=== PATIENT | female | born 1945 | race Caucasian/White ===

== ENCOUNTER 2022-02-03 22:11 | Emergency (ER) | payer MEDICARE, SELFPAY ==
--- NOTE | 2022-02-03 22:22 | ED.SYNCOPE ---
HPI - Syncope General Chief Complaint: Syncope Stated Complaint: syncope Time Seen by Provider: 02/03/22 22:19 History of Present Illness HPI narrative: Patient is a 76-year-old female presents after a syncopal episode. She states she takes no medicine is. She was scrap booking with her [id number] she did have a couple glasses of red wine she said the not atypical for her of she drinks on the weekends. She stood up she had sweats and chills felt nauseous and abruptly passed out. There was a brief loss of consciousness. It is obvious that she did hit her nose where her glasses are. She denies any neck pain no visual changes no numbness tingling or weakness. She has never passed out before. He was feeling in her normal state of health earlier today. EMS reports normal orthostatics. Related Data Allergies Allergy/AdvReac Type Severity Reaction Status Date / Time Penicillins Allergy Verified 02/03/22 22:27 Review of Systems Review of Systems Narrative: GENERAL: Denies chills, fatigue, malaise, fever, sweats, travel HEENT: Denies sinus pain, ear pain, sore throat, difficulty swallowing, neck pain RESPIRATORY: Denies dyspnea, cough, wheezing, hemoptysis, sputum. CARDIOVASCULAR: Denies chest pain, palpitations, orthopnea, edema GASTROINTESTINAL: Denies nausea, vomiting, abdominal pain, diarrhea, constipation, melena. : Denies dysuria, frequency, incontinence, hematuria, urinary retention, flank pain. MUSCULOSKELETAL: Denies weakness, joint pain, or bony pain SKIN: No rash, no erythema, no pruritus NEUROLOGIC: See HPI PSYCHIATRIC: No concerning psychosocial issues. 12 point review of systems is negative except for those stated above and HPI Patient History Social History Smoking Status: Never smoker Exam Initial Vital Signs Initial Vital Signs: Vital Signs Temperature 98.1 F 02/03/22 22:27 Pulse Rate 87 02/03/22 22:27 Respiratory Rate 15 02/03/22 22:27 Blood Pressure 130/68 02/03/22 22:27 Pulse Oximetry 99 02/03/22 22:27 GENERAL: Alert well-appearing 76-year-old female HEENT: Head atraumatic,EOMI, pupils reactive, face symmetric, moist mucous membranes CARDIOVASCULAR: Regular rate and rhythm without murmurs, rubs or gallops. RESPIRATORY: Breath sounds equal bilaterally, no wheezes rales or rhonchi. ABDOMEN: Soft, nontender. Normoactive bowel sounds all 4 quadrants. No guarding or rebound. EXTREMITIES: Normal range of motion, no clubbing or edema. Neurovascularly intact NEUROLOGICAL: Alert and oriented x4.Normal gait and speech. Cranial nerves II through XII grossly intact. Good [id number], good [id number]-[id number], strength equal bilaterally, no dysarthria or aphasia, sensation in tact to soft touch bilaterally, no visual changes, no facial droop SKIN: Nose has a small abrasion no laceration no bleeding Scores NIH Stroke Scale Level of Conciousness: Alert, keenly responsive Ask month/age: Answers both questions correctly. Open/close eyes, close hand: Performs both tasks correctly Best gaze horizontal: Normal Visual espinal: No visual loss Facial palsy: Normal symetrical movement Left arm drift: No drift for full 10 sec Right arm drift: No drift for full 10 sec Left leg drift: No drift for full 5 sec Right leg drift: No drift for full 5 sec Limb ataxia: Absent Sensory on face/arms/legs: Normal, no sensory loss Best language: No aphasia, normal Dysarthria: Normal Extinction or inattention: No abnormality Total NIH Stroke scale score: 0 Course Orders Ordered: ED Orders 02/03/22 22:20 Complete Blood Count AUTO DIFF Stat Comprehensive Metabolic Panel Stat ETOH [Ethanol (ETOH)] Stat Lipase Stat Magnesium Stat Troponin & CK Cardiac Panel Stat 02/03/22 22:31 XR chest 1V Stat EKG-12 Lead Stat 02/03/22 22:44 CT head/brain wo con Stat Discontinued Medications Sodium Chloride (Normal Saline 0.9%) 1,000 mls @ 1,000 mls/hr IV BOLUS ONE Stop: 02/03/22 23:43 Last Infusion: 02/04/22 00:53 Dose: 0 mls/hr Documented by: Admin: 02/03/22 22:52 Dose: 1,000 mls/hr Documented by: NAKITA Ondansetron HCl (Ondansetron 4 Mg/2 Ml Inj) 4 mg IV NOW ONE Stop: 02/03/22 22:33 Last Admin: 02/03/22 22:39 Dose: 4 mg Documented by: NAKITA Vital Signs Vital signs: Vital Signs - 8 hr 02/03/22 22:27 02/03/22 22:36 02/03/22 23:00 Temperature 98.1 F Pulse Rate 87 85 85 Respiratory Rate 15 Blood Pressure 130/68 Pulse Oximetry 99 98 98 02/03/22 23:12 02/03/22 23:30 02/04/22 00:00 Temperature Pulse Rate 82 82 91 H Respiratory Rate Blood Pressure 135/65 127/60 132/61 Pulse Oximetry 100 96 98 02/04/22 00:09 02/04/22 00:30 Temperature Pulse Rate 87 100 H Respiratory Rate 6 L 25 H Blood Pressure 126/76 130/62 Pulse Oximetry 98 97 MDM - Syncope Lab Data Result diagrams: 02/03/22 22:20 02/03/22 22:20 Labs: Lab Results 02/03/22 02/03/22 02/03/22 Range/Units 22:20 22:20 22:20 WBC 8.8 (4.5-11.0) X10^3/uL RBC 4.11 (4.0-5.2) X10^6/uL Hgb 13.1 (12.0-16.0) g/dL Hct 38.1 (36-46) % MCV 92.6 (80-100) fL MCH 31.8 (26-34) PG MCHC 34.3 (30-36) % RDW 12.4 (11.6-14.8) % Plt Count 224 (150-400) X10^3/uL Neut % (Auto) 70.0 (50-75) % Lymph % (Auto) 17.4 L (25-40) % [place] % (Auto) 11.4 (3-14) % Eos % (Auto) 0.7 L (2-4) % Baso % (Auto) 0.5 (0-2) % Neut # (Auto) 6100 (4265-2408) /uL Lymph # (Auto) 1500 (7409-6376) /uL [place] # (Auto) 1000 H (0-900) /uL Eos # (Auto) 100 (0-450) /uL Baso # (Auto) 0 (0-100) /uL Sodium 131 L (137-145) mmol/L Potassium 3.3 L (3.4-5.1) mmol/L Chloride 96 L (98-107) mmol/L Carbon Dioxide 23 (22-32) mmol/L BUN 14 (7-17) mg/dL Creatinine 0.70 (0.52-1.04) mg/dL Estimated GFR > 60.0 (>60) mL/min BUN/Creatinine Ratio 20.0 (6-22) Glucose 120 H (80-110) mg/dL Calcium 9.3 (8.4-10.2) mg/dL Magnesium 2.0 (1.6-2.3) mg/dL Total Bilirubin 0.5 (0.2-1.3) mg/dL AST 33 (14-36) IU/L ALT 23 (<35) IU/L Alkaline Phosphatase 100 (38-126) U/L Total Creatine Kinase 71 (30-135) U/L CK-MB (CK-2) TNP CK-MB (CK-2) Rel Index TNP Troponin I < 0.012 (0.01-0.034) ng/mL Total Protein 8.0 (6.3-8.2) g/dL Albumin 4.5 (3.5-5.0) g/dL Globulin 3.5 (1.7-4.1) g/dL Albumin/Globulin Ratio 1.3 (1.0-2.8) Lipase 65 (23-300) U/L Ethyl Alcohol 40 H ( - 10) mg/dL Imaging Data CT scan - head: Radiologist's Impression: PROCEDURE:? CT HEAD/BRAIN WO CON ? INDICATIONS:? syncope ? TECHNIQUE:? Noncontrast 4.5 mm thick angled axial sections acquired from the foramen magnum to the vertex, with coronal and sagittal reformats.? For radiation dose reduction, the following was used:? automated exposure control, adjustment of mA and/or kV according to patient size.? ? COMPARISON:? None. ? FINDINGS:? Image quality:? Excellent.? ? CSF spaces:? Basal cisterns are patent.? No extra-axial fluid collections.? The ventricles are symmetric in size and shape.? ? Brain:? No intracranial bleeds or masses.? There is cerebral volume loss for age, with resultant ventricular and sulcal prominence.? There are periventricular and deep white matter chronic small vessel ischemic changes.? There is intracranial internal carotid artery atherosclerosis.? ? Skull and face:? Calvarium and visualized facial bones appear intact, without suspicious lesions.? ? Sinuses:? Visualized sinuses and mastoids are clear.? ? IMPRESSION:? Normal for age.? No trauma found. ? ? Dictated by: Jah Tenorio M.D. on 02/03/2022 at 23:20 ? ? Approved by: Jah Tenorio M.D. on 02/03/2022 at 23:20 ? Chest x-ray: Radiologist's Impression: PROCEDURE:? XR CHEST 1V ? INDICATIONS:? chest pain ? TECHNIQUE:? One view of the chest was acquired.? ? COMPARISON:? None. ? FINDINGS:? ? Surgical changes and devices:? None.? ? Lungs and pleura:? Lungs are clear.? No pleural effusions or pneumothorax.? ? Mediastinum:? Mediastinal contours appear normal.? Heart size is normal.? ? Bones and chest wall:? No suspicious bony lesions.? Overlying soft tissues appear unremarkable.? ? IMPRESSION:? Normal for age, source of current chest pain symptoms is not seen. ? ? Dictated by: Jah Tenorio M.D. on 02/03/2022 at 23:19 ? ECG Data Interpretation: 84 MD interval 192 QRS [address] changes PVC noted MDM Narrative Medical decision making narrative: Patient had a syncopal episode after drinking alcohol. No focal deficits head CT is negative. She ambulated to the restroom without any difficulty. She does have some minor electrolyte abnormalities sodium of 131 in potassium 3.3, these are unlikely causing her syncopal episode today. Discharge Plan Departure Patient Disposition: Home Clinical Impression: Vasovagal syncope Instructions: DI for Syncope in Adults (Fainting) Activity Restrictions/Additional Instructions: *You have been diagnosed with vasovagal episode *What to do: At this time you passed out. Unclear what it is from possibly from standing up too fast or out JOE. Workup today is negative. If it should happen again return to emergency department. Recommend going home and resting. Make sure you drink enough fluids throughout the day *Continue to take medications as directed *Follow up with your primary care provider in 2-3 days or call [phone] *Return to ER if you should have recurrent episode of passing out, chest pain palpitations, or any new, worsening or concerning symptoms
[2022-02-03 22:27] VITALS: BP 130/68; PULSE 87; RESP 15; TEMP 36.7; O2SAT 99; BMI 25.3
--- NOTE | 2022-02-03 22:31 | DI.RAD.S_ITS ---
PROCEDURE: XR CHEST 1V INDICATIONS: chest pain TECHNIQUE: One view of the chest was acquired. COMPARISON: None. FINDINGS: Surgical changes and devices: None. Lungs and pleura: Lungs are clear. No pleural effusions or pneumothorax. Mediastinum: Mediastinal contours appear normal. Heart size is normal. Bones and chest wall: No suspicious bony lesions. Overlying soft tissues appear unremarkable. IMPRESSION: Normal for age, source of current chest pain symptoms is not seen. Dictated by: Jha Tenorio M.D. on 02/03/2022 at 23:19 Approved by: Jah Tenorio M.D. on 02/03/2022 at 23:19
[2022-02-03 22:36] VITALS: PULSE 85; O2SAT 98
[2022-02-03] MEDS: ONDANSETRON 4 MG/2 ML INJ IV (22:39)
[2022-02-03 22:42] LABS: Add Manual Diff / Slide Review NO; Basophils Absolute Auto 0 /uL (0-100); Basophils Percent Auto 0.5 % (0-2); Eosinophils Absolute Auto 100 /uL (0-450); Eosinophils Percent Auto 0.7 % (2-4); Hematocrit 38.1 % (36-46); Hemoglobin 13.1 g/dL (12.0-16.0); Lymphocytes Absolute Auto 1500 /uL (1100-4500); Lymphocytes Percent Auto 17.4 % (25-40); Mean Corpuscular HGB Conc 34.3 % (30-36); Mean Corpuscular Hemoglobin 31.8 PG (26-34); Mean Corpuscular Volume 92.6 fL (80-100); Monocytes Absolute Auto 1000 /uL (0-900); Monocytes Percent Auto 11.4 % (3-14); Neutrophils Absolute Auto 6100 /uL (1500-7000); Platelet Count 224 X10^3/uL (150-400); Red Blood Cell Count 4.11 X10^6/uL (4.0-5.2); Red Cell Distribution Width 12.4 % (11.6-14.8); White Blood Cell Count 8.8 X10^3/uL (4.5-11.0)
--- NOTE | 2022-02-03 22:44 | DI.CT.S_ITS ---
PROCEDURE: CT HEAD/BRAIN WO CON INDICATIONS: syncope TECHNIQUE: Noncontrast 4.5 mm thick angled axial sections acquired from the foramen magnum to the vertex, with coronal and sagittal reformats. For radiation dose reduction, the following was used: automated exposure control, adjustment of mA and/or kV according to patient size. COMPARISON: None. FINDINGS: Image quality: Excellent. CSF spaces: Basal cisterns are patent. No extra-axial fluid collections. The ventricles are symmetric in size and shape. Brain: No intracranial bleeds or masses. There is cerebral volume loss for age, with resultant ventricular and sulcal prominence. There are periventricular and deep white matter chronic small vessel ischemic changes. There is intracranial internal carotid artery atherosclerosis. Skull and face: Calvarium and visualized facial bones appear intact, without suspicious lesions. Sinuses: Visualized sinuses and mastoids are clear. IMPRESSION: Normal for age. No trauma found. Dictated by: Jah Tenorio M.D. on 02/03/2022 at 23:20 Approved by: Jah Tenorio M.D. on 02/03/2022 at 23:20
[2022-02-03 22:46] LABS: Alanine Aminotransferase 23 IU/L (<35); Albumin 4.5 g/dL (3.5-5.0); Albumin Globulin Ratio 1.3 (1.0-2.8); Alkaline Phosphatase 100 U/L (38-126); Aspartate Aminotransferase 33 IU/L (14-36); Bilirubin Total 0.5 mg/dL (0.2-1.3); Blood Urea Nitrogen 14 mg/dL (7-17); Calcium 9.3 mg/dL (8.4-10.2); Carbon Dioxide 23 mmol/L (22-32); Chloride 96 mmol/L (98-107); Creatine Kinase 71 U/L (30-135); Estimated Glomerular Filt Rate > 60.0 mL/min (>60); Globulin 3.5 g/dL (1.7-4.1); Glucose 120 mg/dL (80-110); HEMOLYSIS < 15 (0-50); Lipase 65 U/L (23-300); Potassium 3.3 mmol/L (3.4-5.1); Sodium 131 mmol/L (137-145)
[2022-02-03] MEDS: SODIUM CHLORIDE 0.9% 1,000 ML 1000 ML IV (22:52)
[2022-02-03 22:57] LABS: Troponin I < 0.012 ng/mL (0.01-0.034)
[2022-02-03 23:00] VITALS: PULSE 85; O2SAT 98
[2022-02-03 23:01] LABS: Ethanol (ETOH) 40 mg/dL
[2022-02-03 23:12] VITALS: BP 135/65; PULSE 82; O2SAT 100
[2022-02-03 23:30] VITALS: BP 127/60; PULSE 82; O2SAT 96
[2022-02-04] VITALS: BP 132/61; PULSE 91; O2SAT 98
[2022-02-04 00:09] VITALS: BP 126/76; PULSE 87; RESP 6; O2SAT 98
[2022-02-04 00:30] VITALS: BP 130/62; PULSE 100; RESP 25; O2SAT 97
== END 2022-02-04 00:52 | disposition home or self-care (01) ==
PROVIDERS: Emergency Provider Emergency Medicine
DX: R55 Syncope and collapse (principal)
CPT/HCPCS: 36415; 70450; 71045; 80053; 80320; 82550; 83690; 83735; 84484; 85025; 93005; 93010; 96374; 99284; J2405